=== PATIENT | male | born 1990 | race Caucasian/White ===

== ENCOUNTER 2021-08-10 03:20 | Emergency (ER) | payer BC, OTHER ==
[~2021-08-10] VITALS: Ht 175.3 cm; Wt 108.9 kg
[2021-08-10] MEDS ORDERED: CIPROFLOXIN HC2.5 M1 OPHTHALMIC (03:49)
[2021-08-10] MEDS ORDERED: HYDROCODON-ACE1 EAC8 PO (03:49)
[2021-08-10 03:56] VITALS: BP 143/92
== END 2021-08-10 03:57 | disposition home or self-care (01) ==
LOC: M.ERS 03:20
DX: S05.02XA Injury of conjunctiva and corneal abrasion without foreign body, left eye, initial encounter (principal); X58.XXXA Exposure to other specified factors, initial encounter; Y93.89 Activity, other specified; Y92.89 Other specified places as the place of occurrence of the external cause; Y99.8 Other external cause status